=== PATIENT | female | born 1975 | race Hispanic/Latino ===

== ENCOUNTER 2019-08-10 23:17 | Emergency (ER) | payer MEDICAID, OTHER ==
[2019-08-10] MEDS ORDERED: DiphenhydrAMINE HCL 50 MG/ML VIAL ONE (23:43)
[2019-08-10] MEDS ORDERED: METHYLPREDNISOLONE SOD SUCC 125MG/2ML VIAL ONE (23:43)
[2019-08-10] MEDS ORDERED: FAMOTIDINE/PF 20 MG/2 ML VIAL IV ONE (23:43)
[2019-08-11] MEDS ORDERED: ALBUTEROL SULFATE 0.083% 2.5 MG/3 ML INH IH ONE (00:06)
[2019-08-11 00:23] LABS: BASE EXCESS,VENOUS BLOOD GAS -1.2 (-2.0-3.0); HCO3,VENOUS BLOOD GAS 24.1 (21.0-28.0); PCO2,VENOUS BLOOD GAS 43 (32-45); PH,VENOUS BLOOD GAS 7.369 (7.350-7.450)
[2019-08-11] MEDS ORDERED: PREDNISONE 20 MG TABLET ONE (01:40)
[2019-08-11] MEDS ORDERED: ONDANSETRON HCL 4 MG/2 ML VIAL ONE (01:40)
== END 2019-08-11 02:41 | disposition home or self-care (01) ==
LOC: EDH 23:17
DX: T78.40XA Allergy, unspecified, initial encounter (principal); R11.10 Vomiting, unspecified; X58.XXXA Exposure to other specified factors, initial encounter
CPT/HCPCS: 36600; 71045; 82803; 93005; 94640; 96361; 96374; 96375 ×2; 99285; J1200; J2405; J2930; J3490; 96360